=== PATIENT | female | born 1980 | race Caucasian/White ===

== ENCOUNTER 2019-03-27 19:23 | Emergency (ER) | payer MEDICAID ==
[~2019-03-27] VITALS: Ht 170.2 cm; Wt 80.9 kg
[2019-03-27] MEDS ORDERED: buprenorphine/naloxone 8MG-2MG SUBlingual film SL STA ×2 (20:29→21:29)
[2019-03-27] MEDS ORDERED: LIDOcaine 1% W/epiNEPHrine 1:200,000 10ml vial IJ ONE (20:30)
[2019-03-27] MEDS ORDERED: sulfamethoxazole/trimethoprim DS (800/160mg) tablet PO ONE (21:30)
[2019-03-27] MEDS ORDERED: SULF1TAB49 PO (21:39)
[2019-03-27] MEDS ORDERED: NALO4SPR (21:39)
[2019-03-27] MEDS ORDERED: IBUP-1985 PO (21:39)
[2019-03-27 21:53] VITALS: BP 117/62
== END 2019-03-27 21:53 | disposition home or self-care (01) ==
LOC: ER 19:24
DX: L02.31 Cutaneous abscess of buttock (principal); F11.90 Opioid use, unspecified, uncomplicated
CPT/HCPCS: 10060; 99284